=== PATIENT | female | born 1945 ===

== ENCOUNTER → 2016-08-19 | Outpatient (CLI) | payer MEDICARE, OTHER ==
[~2016-08-19] MED LIST: ADVAIR 250-501 EACH INH; ALTACE10 MG PO; ASPIRIN325 MG PO; CARAFATE SU100 MG/ML PO; CARB/LEVO PO; COREG 3.1253.125 MG PO; LASIX40 MG PO; LEXAPRO20 MG PO; PANTOPRAZOLE SO40 MG PO; PHENERGAN25 M1 PO; PROAIR HFA8.5 GM INH; RYTHMOL SR (SU225 MG PO; SPIRIVA HANDIHA1 KIT INH
[2016-08-19 16:13] LABS: ANION GAP 10.9 (10.0-19.0); CALCIUM 8.6 mg/dL (8.5-10.5); CREATININE 1.1 mg/dL (0.5-1.1); MAGNESIUM 2.6 mg/dL (1.8-2.6); POTASSIUM 3.9 mMol/L (3.7-5.1)
== END ==
LOC: LGSOS 15:30
PROVIDERS: Internal Medicine Interventional Cardiology
DX: I48.0 Paroxysmal atrial fibrillation (principal)